=== PATIENT | female | born 1985 | race Caucasian/White ===

== ENCOUNTER 2017-06-30 06:00 | Observation (INO) | payer OTHER ==
[~2017-06-30 06:00] MED LIST: Buffered Lidocaine 0.9% SYRIN* 5 ML/SYR SYRINGE INTRADERM ONE; Famotidine TAB* 20 MG PO ONE; Metoclopramide TAB* 10 MG PO ONE; Scopolamine 1.5 mg* PATCH TRANSDERM ONE; Sodium Citrate/Citric Acid* 15 ML UDC PO ONE
[2017-06-30] MEDS ORDERED: Bacitracin IV* 50,000 UNITS INJ ONE (06:43)
[2017-06-30] MEDS ORDERED: Thrombin 5,000 UNITS* 1 APPLIC KIT - topical use - TOPICAL ONE (06:43)
[2017-06-30] MEDS ORDERED: Lidocaine 1% MPF wEPI 200,000* 30 ML SDV ONE (06:43)
[2017-06-30] MEDS ORDERED: Metoclopramide TAB* 10 MG ONE (06:51)
[2017-06-30] MEDS ORDERED: Scopolamine 1.5 mg* PATCH ONE (06:51)
[2017-06-30] MEDS ORDERED: Famotidine TAB* 20 MG ONE (06:51)
[2017-06-30] MEDS ORDERED: Clindamycin 900 MG IVPREMIX(* 900 MG/50 ML SDV IV ONE (06:52)
[2017-06-30] MEDS ORDERED: Sodium Citrate/Citric Acid* 15 ML UDC ONE (06:52)
[2017-06-30] MEDS ORDERED: Midazolam* 1 MG/ML 2 ML VIAL (2 MG) ONE (07:38)
[2017-06-30] MEDS ORDERED: fentaNYL* 50 MCG/ML 2 ML VIAL (100 MCG VIAL) ONE ×3 (07:38→09:58)
[2017-06-30] MEDS ORDERED: Rocuronium* 10 MG/ML VIAL ONE (07:38)
[2017-06-30] MEDS ORDERED: Propofol* 10 MG/ML 20 ML BTL IV PUSH ONE (07:42)
[2017-06-30] MEDS ORDERED: Dexamethasone IV* 4 MG/ML 1 ML (4 MG) ONE (08:01)
[2017-06-30] MEDS ORDERED: Naloxone* 0.4 MG/ML 1 ML VIAL IV PRN (08:29)
[2017-06-30] MEDS ORDERED: DiMENhydriNATE IV* 50 MG/ML VIAL IV PUSH PRN (08:29)
[2017-06-30] MEDS ORDERED: Acetaminophen IV 1GM/100ML * 10 MG/ML VIAL IVPB ONE (08:29)
[2017-06-30] MEDS ORDERED: Ondansetron INJ* 2 MG/ML VIAL ONE (09:13)
[2017-06-30] MEDS ORDERED: Ondansetron INJ* 2 MG/ML VIAL IV PRN (09:25)
[2017-06-30] MEDS ORDERED: Magnesium Hydroxide LIQ* 30 ML UDC PO PRN (09:25)
[2017-06-30] MEDS ORDERED: Acetaminophen TAB* 325 MG PO PRN (09:25)
[2017-06-30] MEDS ORDERED: Acetaminophen IV 1GM/100ML * 100 ML ONE (09:27)
[2017-06-30] MEDS ORDERED: Albuterol HFA INHALER* 8 gm MDI INH PRN (09:31)
[2017-06-30] MEDS: fentaNYL* 50 MCG/ML 2 ML VIAL (100 MCG VIAL) IV PRN ×2 (09:59→10:11)
--- NOTE | 2017-06-30 10:37 | RAD ---
INDICATION: Anterior cervical discectomy with fusion COMPARISON: None 2 crosstable lateral images are submitted. The first images for localization. On the second image there is a retractor in place with a metallic probe projecting to the C5-C6 disc space. A third image demonstrates completion of cervical fusion at C5-C6 with placement of bone graft, anterior plate and screws.
[2017-06-30] MEDS: HYDROcodone/ACETAMIN 5-325 MG* 1 TAB PO PRN ×3 (11:18→23:50)
--- NOTE | 2017-07-01 03:09 | OP ---
DATE OF OPERATION: 06/30/17 - ROOM #340 DATE OF : 87 SURGEON: Glynn Fuller MD VIDEO CAMERA OPERATOR: LYNDA Oliveira ANESTHESIOLOGIST: Pedro Mendoza MD ANESTHESIA: General. PRE-OP DIAGNOSIS: Herniated nucleus pulposus C5-6. POST-OP DIAGNOSIS: Herniated nucleus pulposus C5-6. OPERATIVE PROCEDURE: Anterior cervical diskectomy and allograft fusion C5-6 with anterior instrumentation. DESCRIPTION OF PROCEDURE: After satisfactory general anesthesia was obtained, the patient was placed with her head supported on a horseshoe headrest and the neck slightly extended. The anterior aspect of the neck was clipped, prepped, and draped in a sterile manner for anterior cervical exposure and a skin incision outlined from the midline to the right side a distance of 3 cm. This incision was infiltrated with 1% Xylocaine with epinephrine, after which it was turned down sharply to the level of the subcutaneous tissues. A superiorly and inferiorly based subcutaneous flap was then developed and the platysmal muscle divided along the direction of its fibers. Utilizing a combination of sharp and blunt dissection, a dissection plane was carried out between the sternocleidomastoid and strap muscles and carried down to the anterior aspect of the spine. An initial x- ray showed the exposure to be at the C6-7 level. Additional superior exposure was obtained until the proper C5-6 level was identified. The attachment of the longus colli muscle was then taken down and self-draining retractors were placed to facilitate exposure. The anterior two- thirds of disk material was then removed from the interspace utilizing a combination of the Midas Gary drill and curettes. After removing the anterior two -thirds of disk material, [place] distractor pins were placed in the C5 and C6 vertebral bodies and gentle disk space distraction applied. The operating microscope was then brought into the field and the remainder of the procedure was done under microscopic visualization. Projecting back centrally was extruded disk material, projecting beneath the posterior longitudinal ligament. Multiple fragments and disk were removed and the dura could be compressed dorsally. At the conclusion of the decompression, the nerve hook grabbed readily with both C6 nerve roots. It was felt that a satisfactory decompression had been achieved. After assuring adequate hemostasis, the wound was thoroughly irrigated, after which a 6-mm bone graft filled with bony matrix and slightly countersunk was placed into the interspace. A [place] plate was then selected to span from C5 to C6 and was secured into position with 13-mm self- drilling screws. A post construct x-ray showed good screw and graft placement. A drain was then placed in the prevertebral space and tunneled out towards the right side. The subcutaneous tissues were reapproximated with 3-0 Vicryl and the skin closed with Steri-Strips. The estimated blood loss was less than 50 cc and the final sponge, padding, and needle counts were correct. The patient was taken to the recovery room, extubated, and in stable condition. [id number]/[facility] #: [id number]
--- NOTE | 2017-07-01 07:39 | PN ---
Progress Note - Progress Note Date of Service: 07/01/17 SOAP: Subjective: []POD # 1 Arm pain relieved Minimal drain output Has ambulated voided well Objective: []Neuro intact Neck soft Assessment: []Satis post op course Plan: []D/C today D/C Instructions given
[2017-07-01] MEDS: HYDROcodone/ACETAMIN 5-325 MG* 1 TAB PO PRN (09:56)
[2017-07-01 10:21] VITALS: BP 151/92
--- NOTE | 2017-07-01 22:52 | DS ---
DISCHARGE SUMMARY: DATE OF ADMISSION: 06/30/17 DATE OF DISCHARGE: 07/01/17 ATTENDING PHYSICIAN: Dr. Fuller.* (DICTATED BY LYNDA KING) DISCHARGE DIAGNOSIS: Cervical disk disorder with myelopathy C5-C6. SPECIAL PROCEDURES: Anterior cervical diskectomy and fusion C5-C6 with anterior instrumentation. HOSPITAL COURSE: This 32-year-old female was seen in the office with bilateral upper extremity pain and numbness for the previous 1 year or more. She had failed to improve with multiple conservative treatments including medications and therapy. She was myelopathic on exam. Signs and symptoms were consistent with herniated nucleus pulposus at C5-C6 centrally with cord compression as evidenced on MRI. Surgical treatment was discussed with the patient and she wished to proceed with this option. On the day of admission, she was taken to surgery where under general anesthesia an anterior cervical diskectomy and fusion at C5-C6 with anterior instrumentation operation was carried out. Postoperatively, the upper extremity symptoms were resolved. She was feeling well. She was eating soft foods and drinking without difficulty. Pain was well-controlled with oral pain medications. She was ambulating independently. On the first postoperative day, the wound drain was discontinued and she was discharged home to the care of her family. Discharge instructions including wound care and activity level were discussed with the patient and information on this was provided. FOLLOWUP: She will be seen in the office in approximately 2 weeks. DISCHARGE MEDICATIONS: Elida 5/325 mg one to two tabs by mouth every 4 hours as needed for pain. LYNDA KING [id number]/[facility] #: [id number] [facility]
[2017-07-03] MEDS ORDERED: Scopolamine PATCH Remove* 1 NOTE MISC PATCH OFF ONE (06:00)
== END 2017-07-01 10:00 | disposition home or self-care (01) ==
LOC: OR 06:00 → SSU 09:26
PROVIDERS: ADMIT Neurological Surgery; ATTEND Neurological Surgery
DX: M50.022 Cervical disc disorder at C5-C6 level with myelopathy (principal); M50.222 Other cervical disc displacement at C5-C6 level; M25.512 Pain in left shoulder; M25.511 Pain in right shoulder
CPT/HCPCS: 72020; 81025; A9270-GY; C1713; C1776; G0378; J1100; J2001; J2250; J2405; J2704; J3010

== ENCOUNTER 2019-06-13 08:43 | Day surgery (SDC) | payer OTHER ==
[~2019-06-13 08:43] MED LIST changes: -Buffered Lidocaine 0.9% SYRIN* 5 ML/SYR SYRINGE INTRADERM ONE; +Buffered Lidocaine 1% SYRIN* 1 ML/SYRINGE INTRADERM ONE; +Famotidine IV* 10 MG/ML 2 ML (20 mg) IV ONE; -Famotidine TAB* 20 MG PO ONE; +Lactated Ringers 1000 ML Bag* 1,000 ML IV SCH; -Metoclopramide TAB* 10 MG PO ONE; -Scopolamine 1.5 mg* PATCH TRANSDERM ONE; -Sodium Citrate/Citric Acid* 15 ML UDC PO ONE
[2019-06-13] MEDS ORDERED: Famotidine IV* 10 MG/ML 2 ML (20 mg) ONE (10:06)
[2019-06-13] MEDS ORDERED: Clindamycin 900 MG/D5W BAG(*) 900 MG/50 ML BAG IVPB ONE ×2 (10:06→11:15)
[2019-06-13] MEDS ORDERED: Midazolam* 1 MG/ML 2 ML VIAL (2 MG) ONE (11:01)
[2019-06-13] MEDS ORDERED: Bupivacaine 0.25% SDV* 30 ML ONE (11:11)
[2019-06-13] MEDS ORDERED: fentaNYL* 50 MCG/ML 2 ML VIAL (100 MCG VIAL) ONE ×2 (11:58→13:19)
[2019-06-13] MEDS ORDERED: Lidocaine 2% PF * 5 ML VIAL ONE (11:58)
[2019-06-13] MEDS ORDERED: KETAMINE HCL* 50 MG/ML 10 ML VIAL ONE (11:58)
[2019-06-13] MEDS ORDERED: Ketorolac INJ* 30 MG/ML 1 ML VIAL ONE (11:59)
[2019-06-13] MEDS ORDERED: Propofol* 10 MG/ML 20 ML BTL ONE (11:59)
[2019-06-13] MEDS ORDERED: Dexamethasone IV* 4 MG/ML 1 ML (4 MG) ONE (11:59)
[2019-06-13] MEDS ORDERED: Ondansetron INJ* 2 MG/ML VIAL ONE (11:59)
[2019-06-13] MEDS ORDERED: Acetaminophen TAB* 325 MG PO PRN (14:12)
[2019-06-13] MEDS ORDERED: DiMENhydriNATE IV* 50 MG/ML VIAL IV PUSH PRN (14:12)
[2019-06-13] MEDS ORDERED: Levalbuterol 0.63MG/3ML NEB* UNIT OF USE INH PRN (14:12)
[2019-06-13] MEDS ORDERED: HYDROcodone/ACETAMIN 5-325 MG* 1 TAB PO PRN (14:12)
[2019-06-13] MEDS ORDERED: fentaNYL* 50 MCG/ML 2 ML VIAL (100 MCG VIAL) IV PRN (14:12)
[2019-06-13] MEDS ORDERED: Naloxone* 0.4 MG/ML 1 ML VIAL IV PRN (14:12)
[2019-06-13] MEDS ORDERED: diPHENhydraMINE IV* 50 MG/ML 1 ml VIAL (BENADRYL) IV PRN (14:12)
[2019-06-13] MEDS ORDERED: DiMENhydriNATE IV* 50 MG/ML VIAL ONE (14:50)
[2019-06-13 16:44] VITALS: BP 140/87
--- NOTE | 2019-06-14 01:30 | OP ---
DATE OF OPERATION: 06/13/19 [facility] DATE OF : 87 SURGEON: Chuck Lopez MD AIRCRAFT STRUCTURAL FITTER: LYNDA Sparks. An family medicine physician assistant was needed for the procedure to aid in positioning of the arm and retraction. ANESTHESIOLOGIST: Dr. Chavez. ANESTHESIA: General. PRE-OP DIAGNOSIS: Right scaphoid waist nonunion. POST-OP DIAGNOSIS: Right scaphoid waist nonunion. OPERATIVE PROCEDURE: Repair of right scaphoid nonunion with autogenous distal radius bone grafting. INDICATIONS: We have been following Ms. Scales's scaphoid fracture for months and months. We recently got another CT scan and it showed findings concerning for nonunion. I told her that at this point additionally she is having quite a bit of pain. I told her at this point that we have to go and put some bone graft in the area and compress things and stabilize things with a screw. She agrees and wishes to proceed. She understands there is a chance of nonunion despite doing surgery and the need for revision surgery as well as wrist arthritis and other complications and she wishes to proceed. ESTIMATED BLOOD LOSS: 2 mL. COMPLICATIONS: None. FINDINGS: See above and below. DESCRIPTION OF PROCEDURE: Ms. Scales was seen in the preoperative holding area. The correct site, side, and procedure were identified. We came back to the operating room where the arm was prepped and draped in the usual fashion and a time-out was performed. The arm was exsanguinated with the Esmarch and the tourniquet was inflated. I made an incision over the dorsum of the wrist over the third dorsal compartment , which was brought distal obliquely in line with the scaphoid. Dissection was carried down and full-thickness flaps were raised off the extensor retinaculum. The external retinaculum was opened over the third dorsal compartment. The EPL tendon was transposed. The capsule overlying the dorsum of the scaphoid was incised and the dorsal scapholunate ligaments were preserved. The soft tissue on the dorsum of the scaphoid was released. I then brought in my mini C- arm fluoroscopy and marked the site of the nonunion. Curette was then used to debride out the fibrous tissue that actually was a fair amount. I then made a dorsal cortical window with the osteotome. I harvested cancellous bone graft, which I then immediately packed into the nonunion site. I then placed my guidewire for my mini Acutrak screw. Once I had it in the appropriate location, I measured, subtracted 4 and selected a 20 mm screw. I then drilled and then placed my screw in standard fashion. This got excellent purchase. I thought the stability was quite nice. The bone graft was densely packed into the site of the nonunion. At this point, everything was looking good. The wound was irrigated out. The capsule was closed with 4-0 PDS suture. The retinaculum was repaired with 4-0 PDS suture, leaving the EPL tendon transposed. The wound was closed. 0.25% Marcaine was infiltrated about the area. The wounds were dressed and she was placed in a well padded thumb spica splint and then taken to the recovery room in stable condition. [id number]/[facility] #: [id number] [facility]
== END 2019-06-13 16:42 | disposition home or self-care (01) ==
LOC: OR 08:43
PROVIDERS: ATTEND Orthopaedic Surgery Hand Surgery
DX: S62.001K Unspecified fracture of navicular [scaphoid] bone of right wrist, subsequent encounter for fracture with nonunion (principal); X58.XXXD Exposure to other specified factors, subsequent encounter; Y92.9 Unspecified place or not applicable; J45.909 Unspecified asthma, uncomplicated; E66.01 Morbid (severe) obesity due to excess calories; Z68.43 Body mass index [BMI] 50.0-59.9, adult; F32.9 Major depressive disorder, single episode, unspecified; M47.812 Spondylosis without myelopathy or radiculopathy, cervical region
CPT/HCPCS: 76000; 81025; C1713; C1776; J1100; J1240; J1885; J2250; J2405; J2704; J3010; J3490